=== PATIENT | female | born 1995 ===

== ENCOUNTER 2023-07-05 16:35 | Inpatient (IN) | payer OTHER ==
[2023-07-05] MEDS: OXYTOCIN 20 UNITS in 0.9% NS 20 UNIT/1,000 ML INFUS.BAG IV SCH (16:58)
[2023-07-05] MEDS ORDERED: BISACODYL 10 MG SUPP.RECT RC PRN (17:43)
[2023-07-05] MEDS ORDERED: oxyCODONE HCL 5 MG TABLET PO PRN (17:43)
[2023-07-05 18:10] VITALS: BMI 32.9
[2023-07-05] MEDS ORDERED: IBUPROFEN 600 MG TABLET (FP) PO ONE (18:51)
[2023-07-05 18:56] LABS: EOS % 0.3 % (0-4.5); HEMATOCRIT 33.1 % (32.4-45.2); HEMOGLOBIN 10.9 GM/dL (10.7-15.3); LYMPH % 10.6 % (8-40); MCHC 33.1 g/dl (32.0-36.0); MEAN CELL VOLUME 75.7 fl (80-96); MEAN PLT VOLUME 8.9 fl (7.5-11.1); MONO % 2.9 % (3.8-10.2); NEUT % 86.2 % (42.8-82.8); PLATELET COUNT 319 10^3/uL (134-434); RBC 4.37 M/mm3 (3.60-5.2); RDW 15.2 % (11.6-15.6); WHITE BLOOD COUNT 15.1 K/mm3 (4.0-10.0)
[2023-07-05] MEDS: IBUPROFEN 600 MG TABLET (FP) PO PRN (19:00)
[2023-07-05 19:02] LABS: INR 0.96 (0.83-1.09); PROTHROMBIN TIME (PATIENT) 11.1 SEC (9.7-13.0)
[2023-07-05 19:06] LABS: ACTIVATED PTT 24.2 SECONDS (25.2-36.5)
[2023-07-05 19:14] LABS: CALCIUM 8.5 mg/dL (8.5-10.1)
[2023-07-05 19:15] LABS: BLOOD UREA NITROGEN 10.2 mg/dL (7-18)
[2023-07-05 19:18] LABS: CREATININE 0.5 mg/dL (0.55-1.3)
[2023-07-05 21:23] VITALS: RESP 18
[2023-07-05] MEDS: METHYLERGONOVINE MALEATE 0.2 MG/1 ML AMP IM PRN (21:23)
[2023-07-05] MEDS: ACETAMINOPHEN 325 MG TABLET (FP) PO PRN (21:24)
[2023-07-05] MEDS: BENZOCAINE 20% 57 GM BOTTLE TP PRN (21:27)
[2023-07-05] MEDS: WITCH HAZEL 50% (TUCKS) 40 PAD/JAR PAD TP PRN (21:29)
[2023-07-05] MEDS: BENZOCAINE 28 GM HEMORRHOIDAL OINTMENT TP PRN (21:29)
[2023-07-06 06:34] LABS: BASO % 0.3 % (0-2.0); EOS % 0.5 % (0-4.5); HEMATOCRIT 31.4 % (32.4-45.2); HEMOGLOBIN 10.2 GM/dL (10.7-15.3); LYMPH % 19.9 % (8-40); MCH 24.8 pg (25.7-33.7); MCHC 32.7 g/dl (32.0-36.0); MEAN PLT VOLUME 8.6 fl (7.5-11.1); MONO % 6.1 % (3.8-10.2); NEUT % 73.2 % (42.8-82.8); PLATELET COUNT 263 10^3/uL (134-434); RBC 4.13 M/mm3 (3.60-5.2); WHITE BLOOD COUNT 15.4 K/mm3 (4.0-10.0)
[2023-07-06] MEDS ORDERED: SENNOSIDES/DOCUSATE COMBO (SENNA PLUS) TABLET (UD) PO PRN (22:00)
[2023-07-06 22:38] VITALS: TEMP 98.7
[2023-07-07 11:32] VITALS: BP 124/74; PULSE 90
== END 2023-07-07 13:10 | disposition home or self-care (01) | DRG 560 ==
LOC: JLDR 16:35 → J3W 19:53
PROVIDERS: ADMIT Obstetrics & Gynecology; ATTEND Obstetrics & Gynecology
PROC: 10E0XZZ Delivery of Products of Conception, External Approach (ICD-10-PCS; principal; 2023-07-05)
DX: O80 Encounter for full-term uncomplicated delivery (principal); Z3A.40 40 weeks gestation of pregnancy; Z37.0 Single live birth
CPT/HCPCS: 36415; 80048; 85025; 85610; 85730; 86780; 86850; 86900; 86901

== ENCOUNTER 2024-11-19 10:57 | Emergency (ER) | payer OTHER ==
[2024-11-19 11:29] VITALS: BP 118/74; RESP 20; TEMP 98.5; BMI 30.2
[2024-11-19 11:33] VITALS: PULSE 88
== END 2024-11-19 11:53 | disposition home or self-care (01) ==
LOC: JERFT 10:57
DX: M79.622 Pain in left upper arm (principal)
CPT/HCPCS: 99283-25